=== PATIENT | female | born 1940 | race African-American/Black ===

== ENCOUNTER → 2016-04-27 | Outpatient (CLI) | payer MEDICARE, MEDICAID | END | disposition home or self-care (01) | LOC: PCVCIMAG 15:40 | PROVIDERS: ATTEND Nuclear Medicine Nuclear Cardiology | DX: I70.211 Atherosclerosis of native arteries of extremities with intermittent claudication, right leg (principal); D64.9 Anemia, unspecified | CPT/HCPCS: 93926 ==

== ENCOUNTER → 2016-05-11 | Outpatient (CLI) | payer MEDICARE, MEDICAID | END | disposition home or self-care (01) | LOC: PCVCCLINIC 15:31 | PROVIDERS: ATTEND Nuclear Medicine Nuclear Cardiology | DX: I73.9 Peripheral vascular disease, unspecified (principal) | CPT/HCPCS: 36415 ==

== ENCOUNTER → 2016-05-17 | Outpatient (CLI) | payer MEDICARE, MEDICAID ==
[~2016-05-17] MED LIST: CEFAZOLIN 2GM PREMIX 50 ML IV ONE; DIAZEPAM 10 MG TABLET ONE; EPTIFIBATIDE BOLUS 2,000 MCG/ML 10ML VIAL. IV ONE; FENTANYL PF 100 MCG/2 ML VIAL. ONE; IODIXANOL 270 MG/ML 100 ML VIAL. ONE; IV NORMAL SALINE 1000ML BAG 1,000 ML ONE; IV NORMAL SALINE 500ML BAG 500 ML ONE; LIDOCAINE 1% Multi-Dose 20 ML VIAL. ONE; MIDAZOLAM HCL 2 MG/2 ML VIAL. ONE; hydrALAZINE 20 MG/ML VIAL. ONE
== END | disposition home or self-care (01) ==
LOC: PCVCINTER 09:32
PROVIDERS: ATTEND Nuclear Medicine Nuclear Cardiology
DX: I70.231 Atherosclerosis of native arteries of right leg with ulceration of thigh (principal); I70.92 Chronic total occlusion of artery of the extremities; I70.1 Atherosclerosis of renal artery; I15.0 Renovascular hypertension; I70.0 Atherosclerosis of aorta; Z45.2 Encounter for adjustment and management of vascular access device
CPT/HCPCS: 36252; 36569; 37186; 37227; 75710; 76937; 77001; C1725; C1751; C1757; C1760; C1769; C1876; C1885; C1894; C2623; J0690; J1327; J2250; J3010; J7030; J7040; J0360; 61707

== ENCOUNTER → 2016-08-28 | Outpatient (CLI) | payer MEDICARE, MEDICAID ==
--- NOTE | 2016-08-28 16:44 | PCVCIMAG ---
EXAM: RIGHT LOWER EXTREMITY ARTERIAL DUPLEX INDICATION: Nonhealing ulcers right lower leg. Previous left leg amputation. FINDINGS: Right Leg: Good arterial waveforms throughout the common femoral, superficial femoral, and popliteal arteries without significant stenosis. Previous stent distal superficial femoral artery maintaining satisfactory patency. 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 Previous tibioperoneal trunk stent remains patent. IMPRESSION: Previous right superficial femoral artery stent maintaining satisfactory patency. 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 Right tibioperoneal trunk stent maintaining satisfactory patency. LOC:[id number]
== END | disposition home or self-care (01) ==
LOC: PCVCIMAG 15:57
PROVIDERS: ATTEND Nuclear Medicine Nuclear Cardiology
DX: I73.9 Peripheral vascular disease, unspecified (principal); I77.89 Other specified disorders of arteries and arterioles; I63.9 Cerebral infarction, unspecified; E11.622 Type 2 diabetes mellitus with other skin ulcer; I65.23 Occlusion and stenosis of bilateral carotid arteries; I10 Essential (primary) hypertension; G81.94 Hemiplegia, unspecified affecting left nondominant side; L97.819 Non-pressure chronic ulcer of other part of right lower leg with unspecified severity; N12 Tubulo-interstitial nephritis, not specified as acute or chronic; Z95.828 Presence of other vascular implants and grafts; Z79.82 Long term (current) use of aspirin; Z79.4 Long term (current) use of insulin; Z79.899 Other long term (current) drug therapy; Z89.512 Acquired absence of left leg below knee; Z88.8 Allergy status to other drugs, medicaments and biological substances
CPT/HCPCS: 93926; G0463